=== PATIENT | male | born 1970 | race Caucasian/White ===

== ENCOUNTER 2017-02-13 15:11 | Emergency (ER) | payer SELFPAY ==
[2017-02-13 15:17] VITALS: BMI 31.6
[2017-02-13] MEDS ORDERED: TETRACAINE HCL ONE (15:19)
[2017-02-13] MEDS ORDERED: FUL-GLO STRIP ONE (15:21)
[2017-02-13] MEDS ORDERED: PHENERGAN INJ 25 MG IM ONE (15:28)
[2017-02-13] MEDS ORDERED: DEMEROL INJ IM ONE (15:28)
[2017-02-13] MEDS ORDERED: DEMEROL INJ ONE (15:30)
[2017-02-13] MEDS ORDERED: PHENERGAN INJ 25 MG ONE (15:30)
--- NOTE | 2017-02-13 16:08 | DR.GENAD ---
HPI - PCP Primary Care Physician: CHRISTOPHER - HPI Comment HPI Comment: WHILE WORKING IN THE [place], A LIMB HIT HIM IN THE LEFT EYE. SEVERE PAIN AND FB SENSATION LEFT EYE. VISION BLURRED. - Complaint/Symptoms Chief Complaint Doctors Comments: INJURY LEFT EYE PRIOR TO COMING TO ED. Chief Complaint:: PATIENT STATED HE WAS WORKING IN THE [place]. AND A LIMB HIT HIM IN HIS EYE AND HE THINKS THE STICK IS IN THERE. - Nurses notes reviewed Nurses Notes Review: Yes - Source History Provided: Patient - Mode of Arrival Mode of Arrival: Ambulatory - Timing Onset of Chief Complaint: 02/13/17 Came on: Suddenly - Duration Duration: Constant Duration: Minutes - Severity Severity: Moderate PMH - PMH Past Medical History: Yes Past Medical History: Anxiety Past Surgical History: No - Family History History of Family Medical Conditions: No - Social History Does patient currently use any type of tobacco product: No Have you used tobacco products in the last 12 months: No Type of Tobacco Use: None Does any household member use tobacco: No Alcohol Use: None Do you use any recreational Drugs:: No Lives With: Family Lives Where: Home - infectious screening In the last 2 months have you had wt loss of >10#?: NO Have you had fever, night sweats or hemotysis?: No Have you traveled outside the country in the last 6 months?: No Isolation: Standard ROS - Review of Systems Constitutional: No Symptoms Reported Eyes: Eye Pain, Blurred Vision, Tearing, Photophobia. negative: Discharge ENTM: No Symptoms Reported Respiratoy: No Symptoms Reported Cardiovascular: No Symptoms Reported Gastrointestinal/Abdominal: No Symptoms Reported Genitourinary: No Symptoms Reported Neurological: No Symptoms Reported Musculoskeletal: No Symptoms Reported Integumentary: No Symptoms Reported Hematologic/Lymphatic: No Symptoms Reported Endocrine: No Symptoms Reported All Other Systems: Reviewed and Negative PE - Vital Signs Vitals: Temperature 98.7 F Pulse Rate 126 Respiratory Rate 18 Blood Pressure 163/110 O2 Sat by Pulse Oximetry 100 - General Limitations: No Limitations General Appearance: Alert - Head Head Exam: Normal Inspection - Eyes Eye exam: Normal Appearance - ENT ENT Exam: Normal External Ear Exam External Ear Exam: Normal External Inspection TM/Canal Exam: Bilateral Normal Nose Exam: Normal Nose Exam Mouth Exam: Normal Inspection Throat Exam: Normal Inspection - Neck Neck Exam: Normal Inspection - Chest Chest Inspection: Symmetric Chest Wall Rise - Respiratory Respiratory Exam: Normal Lung Sounds Bilat Respiratory Exam: Bilateral Clear to Auscultation - Cardiovascular Cardiovascular Exam: Regular Rate, Normal Rhythm, Normal Heart Sounds - Abdominal Exam Abdominal Exam: Normal Bowel Sounds, Soft. negative: Tenderness - Extremities Extremities Exam: Normal Inspection - Back Back Exam: Normal Inspection - Neurologic Neurological Exam: Alert, Oriented X3 - Psychiatric Psychiatric Exam: Anxious - Skin Skin Exam: Normal Color MDM - Additional Information Additional Information Obtained From: Family - Differential Diagnosis Differential Diagnosis: CORNEA ABRASION/ULCER, CONJUNCTIVITIS, ORBITAL CONTUSION Course - Treatment Treatment: SEE ORDERS. - Education/Counseling Education/Counseling: Patient, Family, Education Educated On: Diagnosis, Needs for Follow Up ROR - XRAY XRAY Interpreted by: Radiologist XRAY Findings: REPORT DISCUSS WITH PATIENT. - Diagnosis Discharge Problem: Cornea abrasion Qualifiers: Encounter type: initial encounter Laterality: left Qualified Code(s): S05.02XA - Injury of conjunctiva and corneal abrasion without foreign body, left eye, initial encounter Conjunctivitis Qualifiers: Conjunctivitis type: acute Acute conjunctivitis type: unspecified Laterality: left Qualified Code(s): H10.32 - Unspecified acute conjunctivitis, left eye Orbital contusion Qualifiers: Encounter type: initial encounter Laterality: left Qualified Code(s): S05.12XA - Contusion of eyeball and orbital tissues, left eye, initial encounter - Discharge Plan Disposition: 01 HOME, SELF-CARE Condition: Stable Prescriptions: Acetaminophen W/ Codeine [Tylenol/Codeine #3 300-30 mg] 1 tab PO Q4-6H PRN #12 tab PRN Reason: Pain Ibuprofen [MOTRIN TAB 600 MG *] 600 mg PO TID PRN #20 tab PRN Reason: Pain/Inflammation - Follow ups/Referrals Follow ups/Referrals: Bola Yo [Primary Care Provider] - 02/14/17 YAYA PUENTE [CONSULTING PHYSICIAN] - 02/14/17 - Instructions Instructions: Corneal Abrasion, Bacterial Conjunctivitis Additional Instructions: RETURN TO ED IF WORSE.
--- NOTE | 2017-02-13 16:43 | CT ---
HISTORY: Status post trauma with possible left orbital foreign body Study: CT facial bones without contrast Comparison: None Technique: Multiple axial images of the facial structures were obtained from the mandible to superio r portions of the orbits. AEC was utilized. Findings: There is a small mucous retention cyst or polyp in the right maxillary sinus. The mandible as well as the surrounding bony structures appear unremarkable. The visualized portions of the orbits as we ll as the globe within the right and left orbit are unremarkable in their CT appearance. No radiopaq ue or radiolucent foreign body is identified. There is nasal septal deviation to the right. IMPRESSION: No foreign body or fracture are identified. Reported By:
[2017-02-13] MEDS ORDERED: GENTAK OPHTH OINT ONE (16:54)
[2017-02-13] MEDS ORDERED: GENTAK OPHTH OINT EACHEYE SCH (17:00)
[2017-02-13 17:29] VITALS: BP 156/96
== END 2017-02-13 16:55 | disposition home or self-care (01) ==
LOC: ER 15:28
DX: S05.02XA Injury of conjunctiva and corneal abrasion without foreign body, left eye, initial encounter (principal); H10.32 Unspecified acute conjunctivitis, left eye; Y33.XXXA Other specified events, undetermined intent, initial encounter; Y92.096 Garden or yard of other non-institutional residence as the place of occurrence of the external cause
CPT/HCPCS: 70480; 96372; 99282; J2175; J2550

== ENCOUNTER 2017-07-31 18:10 | Emergency (ER) | payer SELFPAY ==
--- NOTE | 2017-07-31 18:16 | DR.GENAD ---
HPI - Complaint/Symptoms Chief Complaint Doctors Comments: Patient complains of very bad headache, worse he has had. The pain has been all day but worse now. He denies chest pain, nausea or fever. PMH - PMH Past Medical History: Anxiety Past Surgical History: No - Social History Do you use any recreational Drugs:: No ROS - Review of Systems Eyes: No Symptoms Reported ENTM: No Symptoms Reported Respiratoy: No Symptoms Reported Cardiovascular: No Symptoms Reported Gastrointestinal/Abdominal: No Symptoms Reported Genitourinary: No Symptoms Reported Neurological: Headache Musculoskeletal: No Symptoms Reported Integumentary: No Symptoms Reported Hematologic/Lymphatic: No Symptoms Reported Endocrine: No Symptoms Reported Psychiatric: No Symptoms Reported All Other Systems: Reviewed and Negative PE - Vital Signs Vitals: Pulse Rate 94 Respiratory Rate 20 Blood Pressure [Left Arm] 156/96 Blood Pressure 180/101 O2 Sat by Pulse Oximetry 96 - General General Appearance: Alert, In No Apparent Distress - Head Head Exam: Normal Inspection, Atraumatic - Eyes Eye exam: Normal Appearance, PERRL, EOMI - ENT ENT Exam: Normal Exam External Ear Exam: Normal External Inspection TM/Canal Exam: Bilateral Normal Nose Exam: Normal Nose Exam Mouth Exam: Normal Inspection Throat Exam: Normal Inspection - Neck Neck Exam: Normal Inspection, Full ROM - Chest Chest Inspection: Normal Inspection - Respiratory Respiratory Exam: Normal Lung Sounds Bilat Respiratory Exam: Bilateral Clear to Auscultation - Cardiovascular Cardiovascular Exam: Regular Rate - Abdominal Exam Abdominal Exam: Normal Inspection Abdominal Tenderness: negative: RUQ, RLQ, LUQ, LLQ, Epigastrium, Suprapubic, Diffuse, Mild, Moderate, Severe, Other - Extremities Extremities Exam: Normal Inspection, Tenderness (right shoulder pain s/p old injury) - Back Back Exam: Normal Inspection - Neurologic Neurological Exam: Alert, Oriented X3, CN II-XII Intact - Psychiatric Psychiatric Exam: Normal Affect - Skin Skin Exam: Warm, Dry, Intact Course - Reevaluation 1st: Improved - Education/Counseling Education/Counseling: Counseling Educated On: Treatment, Diagnosis, Prognosis ROR - Labs Reviewed Result Diagrams: 07/31/17 18:53 07/31/17 18:53 Laboratory: WBC 9.1 X10^3/uL (3.6-10.0) 07/31/17 18:53 RBC 4.70 X10^6/uL (4.7-6.0) 07/31/17 18:53 Hgb 13.9 g/dL (13.5-18.0) 07/31/17 18:53 Hct 40.2 % (42.0-54.0) L 07/31/17 18:53 MCV 85.6 fL (80.0-100.0) 07/31/17 18:53 MCH 29.6 pg (27.0-34.0) 07/31/17 18:53 MCHC 34.6 g/dL (33.0-35.0) 07/31/17 18:53 RDW 13.1 % (11.6-16.5) 07/31/17 18:53 Plt Count 271 X10^3/uL (150.0-450.0) 07/31/17 18:53 MPV 9.3 fL (7.4-11.0) 07/31/17 18:53 Neut % 74.8 % (42.0-75.0) 07/31/17 18:53 Lymph % 17.7 % (21.0-51.0) L 07/31/17 18:53 [place] % 5.1 % (0.0-13.0) 07/31/17 18:53 Eos % 2.0 % (0.9-2.9) 07/31/17 18:53 Baso % 0.4 % (0.2-1.0) 07/31/17 18:53 Neut # 6.8 x10^3/uL (2.2-4.8) H 07/31/17 18:53 Lymph # 1.6 X10^3/uL (1.3-2.9) 07/31/17 18:53 [place] # 0.5 x10^3/uL (0.3-0.8) 07/31/17 18:53 Eos # 0.2 x10^3/uL (0.0-0.2) 07/31/17 18:53 Baso # 0.0 X10^3/uL (0.0-0.1) 07/31/17 18:53 Absolute Nucleated RBC 0.0 /100WBC 07/31/17 18:53 PTT 23.6 SECONDS (22.9-36.5) 07/31/17 18:53 PTT Comment - 07/31/17 18:53 Sodium 145 mmol/L (136-145) 07/31/17 18:53 Corrected Sodium TNP 07/31/17 18:53 Potassium 3.9 mmol/L (3.5-5.1) 07/31/17 18:53 Chloride 107 mmol/L (98-107) 07/31/17 18:53 Carbon Dioxide 24.5 mmol/L (21-32) 07/31/17 18:53 BUN 13 mg/dL (7-18) 07/31/17 18:53 Creatinine 1.16 mg/dL (0.70-1.30) 07/31/17 18:53 Est GFR (MDRD) Af Amer > 60 (>60) 07/31/17 18:53 Est GFR (MDRD) Non-Af > 60 (>60) 07/31/17 18:53 Glucose 95 mg/dL (65-99) 07/31/17 18:53 Calcium 9.7 mg/dL (8.5-10.1) 07/31/17 18:53 Corrected Calcium TNP 07/31/17 18:53 Total Bilirubin 0.30 mg/dL (0.2-1.0) 07/31/17 18:53 AST 16 Units/L (15-37) 07/31/17 18:53 ALT 19 Units/L (12-78) 07/31/17 18:53 Alkaline Phosphatase 82 Units/L (46-116) 07/31/17 18:53 C-Reactive Protein 2.10 mg/L (0-3.0) 07/31/17 18:53 Total Protein 8.0 g/dL (6.4-8.2) 07/31/17 18:53 Albumin 4.5 g/dL (3.4-5.0) 07/31/17 18:53 Globulin 3.5 g/dL (2.5-4.5) 07/31/17 18:53 Albumin/Globulin Ratio 1.3 Ratio (1.1-2.1) 07/31/17 18:53 - XRAY XRAY Interpreted by: Radiologist (Brain CT: There is no acute intracranial hemorrhage, mass or mass effect. No extra axial fluid collection or abnormal area of hypoattenuation to suggest infarction seen. Ventricles and sulci are normal. Review of bone windows demonstrates no osseous abnormality. The paranasal sinuses mastoid air cells are clear.. ) - Diagnosis Discharge Problem: Headache Qualifiers: Headache type: unspecified Headache chronicity pattern: acute headache Intractability: not intractable Qualified Code(s): R51 - Headache Hypertension Qualifiers: Hypertension type: unspecified Qualified Code(s): I10 - Essential (primary) hypertension - Discharge Plan Condition: Stable - Follow ups/Referrals Follow ups/Referrals: Bola Yo [Primary Care Provider] - 3 days - Instructions
[2017-07-31 18:21] VITALS: BMI 32.5
--- NOTE | 2017-07-31 18:41 | CT ---
CT head without contrast Indication: Headache. Slurred speech Technique: Axial images from the skullbase to the vertex without contrast. Coronal and sagittal refor mats provided. Comparison: No recent prior CT head. CT orbits from 02/13/2017 reviewed. Findings: There is no acute intracranial hemorrhage, mass or mass effect. No extra-axial fluid collec tion or abnormal area of hypoattenuation to suggest infarction seen. Ventricles and sulci are normal. Review of bone windows demonstrates no osseous abnormality. The paranasal sinuses mastoid air cells are clear. Impression: No acute intracranial abnormality. Reported By:
[2017-07-31] MEDS ORDERED: NS 1000 ML 1,000 ML ONE (18:53)
[2017-07-31] MEDS ORDERED: NS 1000 ML 1,000 ML IV ONE (18:53)
[2017-07-31 19:14] LABS: BASOPHILS % (AUTO) 0.4 % (0.2-1.0); EOSINOPHILS # (AUTO) 0.2 x10^3/uL (0.0-0.2); HEMATOCRIT 40.2 % (42.0-54.0); HEMOGLOBIN 13.9 g/dL (13.5-18.0); LYMPHOCYTES # (AUTO) 1.6 X10^3/uL (1.3-2.9); LYMPHOCYTES % (AUTO) 17.7 % (21.0-51.0); MEAN CORPUSCULAR HEMOGLOBIN 29.6 pg (27.0-34.0); MEAN CORPUSCULAR HGB CONC 34.6 g/dL (33.0-35.0); MEAN CORPUSCULAR VOLUME 85.6 fL (80.0-100.0); MEAN PLATELET VOLUME 9.3 fL (7.4-11.0); MONOCYTES # (AUTO) 0.5 x10^3/uL (0.3-0.8); MONOCYTES % (AUTO) 5.1 % (0.0-13.0); NEUTROPHILS # (AUTO) 6.8 x10^3/uL (2.2-4.8); NEUTROPHILS % (AUTO) 74.8 % (42.0-75.0); PLATELET COUNT 271 X10^3/uL (150.0-450.0); RED CELL DISTRIBUTION WIDTH 13.1 % (11.6-16.5); WHITE BLOOD COUNT 9.1 X10^3/uL (3.6-10.0)
[2017-07-31 19:24] LABS: ALANINE AMINOTRANSFERASE 19 Units/L (12-78); ALBUMIN 4.5 g/dL (3.4-5.0); ALKALINE PHOSPHATASE 82 Units/L (46-116); ASPARTATE AMINO TRANSFERASE 16 Units/L (15-37); BLOOD UREA NITROGEN 13 mg/dL (7-18); CALCIUM 9.7 mg/dL (8.5-10.1); CARBON DIOXIDE 24.5 mmol/L (21-32); CHLORIDE 107 mmol/L (98-107); CREATININE 1.16 mg/dL (0.70-1.30); SODIUM 145 mmol/L (136-145); eGFR BLACK RACES > 60 (>60); eGFR NON BLACK RACES > 60 (>60)
[2017-07-31] MEDS ORDERED: MORPHINE SULFATE INJ 4 MG IVP ONE (19:46)
[2017-07-31] MEDS ORDERED: MORPHINE SULFATE INJ 4 MG ONE (19:48)
[2017-07-31] MEDS ORDERED: CATAPRES TAB 0.1 MG PO ONE (19:51)
[2017-07-31] MEDS ORDERED: CATAPRES TAB 0.1 MG ONE (19:52)
[2017-07-31 20:54] VITALS: BP 166/96
== END 2017-07-31 20:54 | disposition home or self-care (01) ==
LOC: ER 18:14
DX: R51 Headache (principal); I10 Essential (primary) hypertension
CPT/HCPCS: 36415; 70450; 80053; 85025; 85730; 86140; 96365; 96374; 99283; A4222; J2270